=== PATIENT | male | born 1985 | race African-American/Black ===

== ENCOUNTER 2016-12-11 06:49 | Emergency (ER) | payer SELFPAY ==
[2016-12-11] MEDS ORDERED: OXYCODONE-ACETAMINOPHEN 5-325 MG TABLET PO ONE (08:04)
[2016-12-11] MEDS ORDERED: LIDOCAINE 1% INJ-PF (10 MG/ML) 30 ML SDV INJ ONE (08:31)
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
[2016-12-11 09:37] VITALS: BP 109/64
== END 2016-12-11 09:35 | disposition home or self-care (01) ==
LOC: ER 06:49
DX: S61.411A Laceration without foreign body of right hand, initial encounter (principal); Y04.2XXA Assault by strike against or bumped into by another person, initial encounter; F17.210 Nicotine dependence, cigarettes, uncomplicated
CPT/HCPCS: 99284; 73130; J3490

== ENCOUNTER 2016-12-12 23:50 | Day surgery (SDC) | payer SELFPAY ==
[2016-12-13 01:28] LABS: ABSOLUTE EOSINOPHILS # (AUTO) 0.1 10^3/uL (0.0-0.6); ABSOLUTE LYMPHOCYTES (AUTO) 2.5 10^3/uL (0.5-4.7); ABSOLUTE MONOCYTES (AUTO) 1.4 10^3/uL (0.1-1.4); ABSOLUTE NEUT (AUTO) 10.3 10^3/uL (1.7-8.2); BASOPHILS % (AUTO) 0.3 % (0-2); EOSINOPHILS % (AUTO) 0.7 % (0-6); HEMATOCRIT 44.2 % (37.9-51.0); HEMOGLOBIN 15.5 g/dL (13.5-17.0); HGB HCT DIFFERENCE 2.3; LYMPHOCYTES % (AUTO) 17.4 % (13-45); MEAN CORPUSCULAR HEMOGLOBIN 33.6 pg (27.0-33.4); MEAN CORPUSCULAR HGB CONC 35.1 g/dL (32.0-36.0); MEAN CORPUSCULAR VOLUME 96 fl (80-97); MONOCYTES % (AUTO) 9.7 % (3-13); RED BLOOD COUNT 4.61 10^6/uL (4.35-5.55); RED CELL DISTRIBUTION WIDTH 12.6 % (11.5-14.0); SEGMENTED NEUTROPHILS % (AUTO) 71.9 % (42-78); WHITE BLOOD COUNT 14.4 10^3/uL (4.0-10.5)
[2016-12-13] MEDS ORDERED: CEFTRIAXONE INJ 1000 MG VIAL IV ONE (03:19)
[2016-12-13] MEDS ORDERED: CLINDAMYCIN 600 MG/D5W RTU 50 ML IV ONE (03:19)
[2016-12-13] MEDS ORDERED: FENTANYL CITRATE INJ/PF 100 MCG/2 ML AMPUL IV ONE (03:19)
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
[2016-12-13 08:51] LABS: ABSOLUTE BASOPHILS # (AUTO) 0.1 10^3/uL (0.0-0.2); ABSOLUTE EOSINOPHILS # (AUTO) 0.1 10^3/uL (0.0-0.6); ABSOLUTE LYMPHOCYTES (AUTO) 2.5 10^3/uL (0.5-4.7); ABSOLUTE MONOCYTES (AUTO) 1.4 10^3/uL (0.1-1.4); ABSOLUTE NEUT (AUTO) 7.8 10^3/uL (1.7-8.2); BASOPHILS % (AUTO) 0.6 % (0-2); EOSINOPHILS % (AUTO) 1.2 % (0-6); HEMATOCRIT 42.1 % (37.9-51.0); HEMOGLOBIN 14.5 g/dL (13.5-17.0); HGB HCT DIFFERENCE 1.4; LYMPHOCYTES % (AUTO) 21.2 % (13-45); MEAN CORPUSCULAR HEMOGLOBIN 32.6 pg (27.0-33.4); MEAN CORPUSCULAR HGB CONC 34.5 g/dL (32.0-36.0); MEAN CORPUSCULAR VOLUME 95 fl (80-97); MONOCYTES % (AUTO) 11.8 % (3-13); RED BLOOD COUNT 4.46 10^6/uL (4.35-5.55); RED CELL DISTRIBUTION WIDTH 12.5 % (11.5-14.0); SEGMENTED NEUTROPHILS % (AUTO) 65.2 % (42-78); WHITE BLOOD COUNT 11.9 10^3/uL (4.0-10.5)
[2016-12-13 09:04] LABS: PROTHROMBIN TIME 13.7 SEC (11.4-15.4)
[2016-12-13 09:05] LABS: PARTIAL THROMBOPLASTIN TIME 33.4 SEC (23.5-35.8)
[2016-12-13 09:15] LABS: ANION GAP 10 (5-19); BLOOD UREA NITROGEN 12 mg/dL (7-20); C-REACTIVE PROTEIN 48.9 mg/L (<10.0); CALCIUM 9.5 mg/dL (8.4-10.2); CARBON DIOXIDE 27 mmol/L (22-30); CHLORIDE 102 mmol/L (98-107); CREATININE RESULT 0.77 mg/dL (0.52-1.25); GLUCOSE 98 mg/dL (75-110); POTASSIUM 3.9 mmol/L (3.6-5.0); SODIUM 138.5 mmol/L (137-145)
[2016-12-13 09:28] LABS: ERYTHROCYTE SEDIMENTATION RATE 24 mm/hr (0-15)
[2016-12-13] MEDS: IBUPROFEN 800 MG in NORMAL SALINE 250 ML IV SCH ×2 (10:53→17:08)
[2016-12-13] MEDS: OXYCODONE HCL IR 5 MG TABLET PO SCH ×2 (11:04→17:08)
[2016-12-13] MEDS: CLINDAMYCIN 600 MG/D5W RTU 600 MG/50 ML RTUPB IV SCH ×2 (13:38→21:19)
[2016-12-13] MEDS: RINGERS SOLUTION,LACTATED 1,000 ML IV PRN (21:21)
[2016-12-14] MEDS: OXYCODONE HCL IR 5 MG TABLET PO SCH ×2 (01:35→05:18)
[2016-12-14] MEDS: IBUPROFEN 800 MG in NORMAL SALINE 250 ML IV SCH (01:35)
[2016-12-14] MEDS: CLINDAMYCIN 600 MG/D5W RTU 600 MG/50 ML RTUPB IV SCH (05:18)
[2016-12-14] MEDS: RINGERS SOLUTION,LACTATED 1,000 ML IV PRN (05:18)
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
[2016-12-14 07:56] VITALS: BP 129/74
[2016-12-14] MEDS ORDERED: CEFTRIAXONE 2 GM/D5W RTU 2 GM/50 ML RTUPB IV SCH (08:00)
== END 2016-12-14 09:00 | disposition home or self-care (01) ==
LOC: ER 23:50 → EH 12-13 03:30 → UNDOADMIN 12-13 03:30 → 5 12-13 04:55 → EH 12-13 04:55 → 5 12-13 07:39 → OROUT 12-13 07:39 → UNDOADMIN 12-13 07:39 → ER 12-13 07:39 → UNDODISIN 12-14 09:00 → OROUT 12-14 09:00
PROVIDERS: ATTEND Orthopaedic Surgery
DX: L02.511 Cutaneous abscess of right hand (principal); L03.113 Cellulitis of right upper limb; S61.451D Open bite of right hand, subsequent encounter; M65.841 Other synovitis and tenosynovitis, right hand; Y04.1XXD Assault by human bite, subsequent encounter
CPT/HCPCS: 99284; 36415; 87040; 85025; 85652; 85610; 85730; 86140; 80048; J3010; J0696; J7050 ×2; J7120 ×2; J1741 ×2